=== PATIENT | male | born 1975 | race Caucasian/White ===

== ENCOUNTER 2021-02-07 09:03 | Emergency (ER) | payer SELFPAY ==
[2021-02-07 09:14] VITALS: BP 180/99; PULSE 94; RESP 18; TEMP 36.5; O2SAT 100
--- NOTE | 2021-02-07 09:16 | ED.BACK ---
HPI - Back Pain/Injury General Chief Complaint: Back Pain/Injury Stated Complaint: back pain with radiation down leg Time Seen by Provider: 02/07/21 09:16 Source: patient Mode of arrival: ambulatory Limitations: no limitations History of Present Illness HPI Narrative: Patient is a 45-year-old male who presents to the emergency department for evaluation of right-sided lower back pain. 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 Patient had immediate, sharp pain in his right lower back with radiation down his right leg. No fall. Patient does have a history of lower back pain. He does denies any numbness or tingling in his right lower extremity. No difficulty with bowel or bladder function. He is able to ambulate. He denies any upper back pain or chest pain. Related Data Allergies Allergy/AdvReac Type Severity Reaction Status Date / Time No Known Allergies Allergy Unverified 02/07/21 09:25 Review of Systems Review of Systems: Narrative: CONSTITUTIONAL: Denies fever CARDIOVASCULAR: Denies chest pain RESPIRATORY: Denies cough or dyspnea. GASTROINTESTINAL: Denies abdominal pain SKIN: Denies rash MUSCULOSKELETAL: Reports right lower back pain NEUROLOGIC: Denies headache PMFSH Past Medical History Medical History (Updated 02/07/21 @ 09:47 by Patricia Juárez MD) Chronic lumbar pain Social History Social History (Updated 02/07/21 @ 09:28 by Patricia Juárez MD) Smoking status: Current every day smoker Alcohol intake: current Substance use: never Gender identity (if verbalized by the patient): Male Exam Narrative: Exam Narrative: GENERAL: Awake, alert, conversant HEAD: Normocephalic, atraumatic. EYES: PERRLA and EOMI. ENT: Nares clear, no rhinorrhea or epistaxis. Mucous membranes moist. NECK: Supple. CHEST: No respiratory distress, breathing even and non labored HEART: Regular rate, sinus rhythm ABDOMEN:Non distended, non tender EXTREMITIES: Normal range of motion. No edema. Strength bilateral lower extremities 5/5. Intact EHL/FHL. Mild right lateral thigh tenderness to palpation. Right SI joint tenderness. Right lumbar paraspinal tenderness at L4-L5. No midline thoracic or lumbar tenderness. Extremities are warm and well-perfused. Intact distal sensation. SKIN: Warm, dry, no rash. NEURO:No focal deficits. Alert and oriented x3 Course Vital Signs Vital signs: Vital Signs Temperature 36.5 C 02/07/21 09:14 Pulse Rate 94 02/07/21 09:14 Respiratory Rate 18 02/07/21 09:14 Blood Pressure 180/99 H 02/07/21 09:14 Pulse Oximetry 100 02/07/21 09:14 Temperature 36.5 C 02/07/21 09:14 Pulse Rate 94 02/07/21 09:14 Respiratory Rate 18 02/07/21 09:14 Blood Pressure 180/99 H 02/07/21 09:14 Pulse Oximetry 100 02/07/21 09:14 MDM - Back Pain/Injury MDM Narrative Medical decision making narrative: Given History and Exam the patient appears to be at low risk for Spinal Cord Compression Syndrome, Vertebral Malignancy/Mets, acute Spinal Fracture, Vertebral Osteomyelitis, Epidural Abscess, Infected or Obstructing Kidney Stone. Patient is somewhat hypertensive, likely due to pain. No history of hypertension per patient although he does state he has not been to a doctor in many years. Their presentation appears most likely to be secondary to non-emergent musculoskeletal etiology vs non-emergent disc herniation. Pain is reproducible, and patient has no other high risk factors such as history of malignancy, weight loss, infectious symptoms. ED Workup: Labwork for outpatient follow up at this time. Disposition: Discharge. Strict return precautions discussed with patient with full understanding. Pt advised also needs to see PCP regarding BP as he may have borderline hypertension. He was advised to stop smoking. Advised to take scheduled Tylenol, ibuprofen, advised massage therapy as well as heat to help with pain. Will discharge home with a
[2021-02-07] MEDS: ACETAMINOPHEN 500 MG TABLET 1000 MG PO (10:04)
[2021-02-07] MEDS: diazePAM (*CRX) 5 MG TABLET PO (10:05)
[2021-02-07] MEDS: KETOROLAC (*BKC) 60 MG/2 ML VIAL 30 MG IM (10:05)
[2021-02-07] MEDS: predniSONE 20 MG TABLET 60 MG PO (10:05)
== END 2021-02-07 22:31 | disposition home or self-care (01) ==
PROVIDERS: Emergency Provider Emergency Medicine
DX: M54.31 Sciatica, right side (principal); F17.210 Nicotine dependence, cigarettes, uncomplicated
CPT/HCPCS: 96372; 99283; A9270; J1885; J7512

== ENCOUNTER 2022-03-16 11:05 | Emergency (ER) | payer BC, SELFPAY ==
--- NOTE | ~2022-03-16 | XR_ITS ---
XR knee LT min 4V 03/16/2022 11:31 Indication: Left knee pain Procedure: 4 views left knee Comparison: No prior studies for comparison. Findings: No suspicious masses, calcifications or architectural distortion in the left breast to sugg est malignancy. Small joint effusion. No foreign bodies. Impression: 1: Small knee effusion. Reviewed, dictated and finalized at location A. Impression: 1: Small knee effusion.
[2022-03-16 11:05] VITALS: BP 188/96; PULSE 83; RESP 18; TEMP 36.3; O2SAT 100
--- NOTE | 2022-03-16 11:49 | ED.LOWEXIN ---
HPI - Extremity Injury (Lower) General Chief Complaint: Extremity Injury, Lower Stated Complaint: knee pain Time Seen by Provider: 03/16/22 11:14 History of Present Illness HPI Narrative: 46-year-old male presents emergency room with cute onset of left knee pain. 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 Patient states that the knee feels unstable when he is turning it or attempting to straighten it. Patient reports the pain feels sharp and stabbing at times. Denies taking any medications to alleviate symptoms. Denies any history of injuries to the left knee Related Data Allergies Allergy/AdvReac Type Severity Reaction Status Date / Time No Known Allergies Allergy Unverified 02/07/21 09:25 Review of Systems Review of Systems: CONSTITUTIONAL: Denies fever, chills, or sweats. EYES: Denies visual changes, redness, or discharge. ENT: Denies rhinorrhea, congestion, sore throat, or otalgia. CARDIOVASCULAR: Denies chest pain, palpitations, or edema. RESPIRATORY: Denies cough or dyspnea. GASTROINTESTINAL: Denies abdominal pain, nausea, vomiting, or diarrhea. GENITOURINARY: Denies dysuria or hematuria. SKIN: Denies rash or itching. MUSCULOSKELETAL: Reports left knee pain NEUROLOGIC: Denies headache, numbness, dizziness, or weakness. PSYCHIATRIC: Denies anxiety or depression. PMFSH Past Medical History Medical History Chronic lumbar pain Social History Social History Smoking status: Current every day smoker Alcohol intake: current Substance use: never Gender identity (if verbalized by the patient): Male Exam Narrative: GENERAL: Well-appearing, well-nourished, and in no acute distress. HEAD: Normocephalic, atraumatic. EYES: PERRLA and EOMI. CHEST: Clear to auscultation. No respiratory distress. No wheezes rales or rhonchi HEART: Regular rate and rhythm. No murmur heard. Normal peripheral pulses. ABDOMEN: Soft, nontender, nondistended, normal active bowel sounds. EXTREMITIES: Left knee: No bony abnormality, no soft tissue swelling, posterior and anterior drawer tests are negative, pain with varus stress, no joint laxity noted, Vince's sign is negative, neurovascular is intact distally SKIN: Warm, dry, no rash. NEURO: No focal deficits. Alert and oriented x3. PSYCH: Normal mood and affect. Course Vital Signs Vital signs: Vital Signs Temperature 36.3 C L 03/16/22 11:05 Pulse Rate 83 03/16/22 11:05 Respiratory Rate 18 03/16/22 11:05 Blood Pressure 188/96 H 03/16/22 11:05 Pulse Oximetry 100 03/16/22 11:05 Temperature 36.3 C L 03/16/22 11:05 Pulse Rate 83 03/16/22 11:05 Respiratory Rate 18 03/16/22 11:05 Blood Pressure 188/96 H 03/16/22 11:05 Pulse Oximetry 100 03/16/22 11:05 Discharge Plan Discharge Clinical Impression: Acute internal derangement of left knee Patient Disposition: Home, Self-Care Condition: Stable Instructions: Antibiotic Form Prescriptions: New celecoxib [Celebrex] 200 mg capsule 200 mg PO BID Qty: 20 RF: 0 methocarbamol 750 mg tablet 750 mg PO TID Qty: 20 RF: 0 No Action acetaminophen 500 mg capsule 500 mg PO Q6H PRN (Reason: fever or pain) Qty: 30 RF: 0 diazepam 5 mg tablet 5 mg PO HS PRN (Reason: pain, moderate) Qty: 10 RF: 0 lidocaine 4 % adhesive patch,medicated 1 patch TOPICAL Q24H PRN (Reason: pain) 10 Days Qty: 10 RF: 0 prednisone 20 mg tablet 40 mg PO DAILY 5 Days Qty: 10 RF: 0 ibuprofen 400 mg tablet 400 mg PO TID PRN (Reason: fever or pain) 10 Days Qty: 30 RF: 0 Follow-up/Referrals: PHYSICIAN,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
[2022-03-16] MEDS: KETOROLAC (*BKC) 60 MG/2 ML VIAL IM (12:18)
== END 2022-03-16 12:21 | disposition home or self-care (01) ==
PROVIDERS: Emergency Provider Nurse Practitioner Family
DX: M23.92 Unspecified internal derangement of left knee (principal); F17.200 Nicotine dependence, unspecified, uncomplicated
CPT/HCPCS: 73564; 96372; 99283; J1885

== ENCOUNTER 2025-01-31 10:50 | Emergency (ER) | payer BC, SELFPAY ==
[2025-01-31] VITALS (7 sets, daily range): BP systolic 176–206; BP diastolic 84–105; PULSE 87–108; RESP 16–28; TEMP 36.8; O2SAT 98–100
--- NOTE | ~2025-01-31 | XR_ITS ---
CHEST RADIOGRAPH, PA AND LATERAL CLINICAL HISTORY: chest pain . COMPARISON: None available TECHNIQUE: PA and lateral views of the chest. FINDINGS The cardiomediastinal silhouette is unremarkable. The lungs are clear. Visualized osseous structures and soft tissues are unremarkable. IMPRESSION: No focal infiltrate or effusion. Reviewed, dictated and finalized at location A.
--- NOTE | 2025-01-31 10:53 | ECG_ITS ---
Test Date: 2025-01-31 10:59:50 Measurements Intervals [place] Rate: 98 P: 51 WA: 179 QRS: 23 QRSD: 98 T: 41 QT: 334 QTc: 426 Interpretive Statements SINUS RHYTHM NORMAL ECG No previous ECG available for comparison Electronically Signed On 01-31-2025 14:20:34 CDT by Santosh Bean M.D.
[2025-01-31 11:13] LABS: Basophils Absolute Auto 0.1 K/mm3 (0.0-0.1); Basophils Percent Auto 0.5 % (0.2-1.2); Eosinophils Absolute Auto 0.1 K/mm3 (0-0.3); Eosinophils Percent Auto 0.8 % (0-4.4); Hematocrit 46.3 % (42.0-52.0); Hemoglobin 15.6 g/dL (14.0-18.0); Immature Granulocyte Absolute 0.08 K/mm3 (0.00-0.031); Immature Granulocyte Percent A 0.5 % (0-0.5); Lymphocytes Absolute Auto 1.45 K/mm3 (0.9-3.2); Lymphocytes Percent Auto 8.7 % (18.3-44.2); Mean Corpuscular HGB Conc 33.7 g/dl (32-36); Mean Corpuscular Hemoglobin 32.7 pg (26-34); Mean Corpuscular Volume 97.1 fl (80-100); Mean Platelet Volume 9.8 fl (7.4-10.4); Monocytes Absolute Auto 1.4 K/mm3 (0.1-0.6); Monocytes Percent Auto 8.6 % (2.6-8.5); Neutrophils Absolute Auto 13.5 K/mm3 (1.3-6.7); Neutrophils Percent Auto 80.9 % (45.5-73.1); Platelet Count Result 255 k/mm3 (150-375); Red Blood Count 4.77 M/mm3 (4.6-6.20); Red Cell Distribution Width 12.2 % (11.5-14.5); White Blood Count 16.7 K/mm3 (4.5-10.0)
[2025-01-31 11:24] LABS: Alanine Aminotransferase 18 U/L (6-50); Albumin Level 4.4 g/dL (3.5-5.1); Alkaline Phosphatase 94 U/L (38-126); Anion Gap 10 mmol/L (4-12); Aspartate Amino Transferase 18 U/L (17-59); Bilirubin,Total 0.8 mg/dL (0.2-1.3); Blood Urea Nitrogen 7 mg/dL (9-20); Calcium 9.5 mg/dL (8.4-10.2); Carbon Dioxide 28 mmol/L (22-30); Chloride 102 mmol/L (98-107); Estimated CRCL calculation 122 ml/min; Estimated Glomerular Filt Rate > 60; Glucose 130 mg/dL (65-110); Lipase 18 U/L (23-300); Potassium 4.4 mmol/L (3.4-5.0); Sodium 140 mmol/L (137-145)
[2025-01-31 11:25] LABS: INR 0.9; Prothrombin Time 12.7 Seconds (11.1-14.7)
[2025-01-31 11:36] LABS: Troponin I < 0.012 ng/mL (0.000-0.034)
[2025-01-31 13:16] LABS: D Dimer 0.66 ug/mL (<0.48)
--- NOTE | 2025-01-31 13:45 | ED.CHESTPAIN ---
HPI - Chest Pain General Chief Complaint: Chest Pain Stated Complaint: center chest hurts Time Seen by Provider: 01/31/25 12:45 History of Present Illness HPI narrative: 49-year-old male with no pertinent past medical history presenting to the emergency department for evaluation of midsternal chest pain. 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 Worsens with palpation and twisting motions. Worsens with leaning forward and deep breathing. No shortness of breath or pain without movement. No nausea, vomiting, abdominal pain, fever, chills. No history of any cardiac disease. He does not see doctors regularly. He is hypertensive in triage. No other vital anomalies. Did not take anything besides Tylenol and ibuprofen which did alleviate the symptoms transiently at home. No trauma or injuries otherwise. Related Data Allergies Allergy/AdvReac Type Severity Reaction Status Date / Time No Known Allergies Allergy Verified 01/31/25 10:51 Review of Systems Review of Systems: As reviewed above in HPI [facility] Past Medical History Medical History Chronic lumbar pain Social History Social History Smoking status: Current every day smoker Alcohol intake: current Substance use: never Gender identity (if verbalized by the patient): Male Exam Narrative: GENERAL: [Well-appearing, well-nourished, and in no acute distress.] HEAD: [Normocephalic, atraumatic.] EYES: [PERRLA and EOMI.] ENT: Nares clear, no rhinorrhea or epistaxis. Mucous membranes moist. NECK: Supple. CHEST: [Clear to auscultation. No respiratory distress.] Reproducible tenderness to palpation along the sternum and costochondral junctions, no overlying skin changes. No pericardial rub or murmur HEART: [Regular rate and rhythm]. No murmur heard. [Normal peripheral pulses.] ABDOMEN: [Soft, nondistended], [nontender], [No rigidity or guarding] EXTREMITIES: Normal range of motion. [No edema.] SKIN: Warm, dry, no rash. NEURO: [No focal deficits]. Alert and oriented [x3.] PSYCH: [Normal mood and affect.] Course Vital Signs Vital signs: Vital Signs Temperature 36.8 C 01/31/25 10:54 Pulse Rate 87 01/31/25 10:54 Respiratory Rate 16 01/31/25 10:54 Blood Pressure 206/84 H 01/31/25 10:54 Pulse Oximetry 98 01/31/25 10:54 Temperature 36.8 C 01/31/25 10:54 Pulse Rate 87 01/31/25 10:54 Respiratory Rate 16 01/31/25 10:54 Blood Pressure 206/84 H 01/31/25 10:54 Pulse Oximetry 99 01/31/25 12:18 Oxygen Delivery Room Air 01/31/25 12:18 MDM - Chest Pain MDM Narrative Medical decision making narrative: 49-year-old male with no reported past medical history but does not seek medical doctors. Presents to the emergency depart with chest pain. Was moving heavy karyn all day yesterday and woke up today with midsternal chest pain worse with palpation and twisting, breathing. No shortness of breath or pain without palpation or movement. No cardiac disease to his knowledge but is hypertensive in triage. Does not take any blood pressure medications. Was otherwise in his normal state of health. No other trauma or injuries. He has an unremarkable physical examination with 2+ symmetric pulses in both arms and legs. Repeat vital signs while he was sitting down in the examination room shows a blood pressure of 174/72. No tachycardia, fever or hypoxia. He has reproducible midsternal Mony and costochondral tenderness without any overlying skin changes. Suspicion presently is for musculoskeletal chest pain, costochondritis, precordial catch syndrome, less likely pneumonia, pneumothorax him ACS or thromboembolic disease such as aortic process/aneurysm. given his risk factors including elevated blood pressure without any reported history of hypertension a broad workup was ordered including a CBC, CMP, EKG, chest x-ray, D-dimer and troponin. He was given Toradol for analgesia with good effect. Workup shows a leukocytosis but no anemia or platelet dysfunction. Normal coagulation panel. D-dimer is mildly elevated 0.66 but he meet YEARS criteria to safely exclude thromboembolic PE. electrolyte panel is normal, normal BUN and creatinine, normal renal function, unremarkable glucose. Negative troponin. EKG shows no signs of dysrhythmia or ST segment elevations, depressions or acute inversions. Normal sinus rhythm. chest x-ray shows no mediastinal widening, no acute cardiothoracic process. Patient was re-evaluated with improvement and likely has musculoskeletal chest pain but he does have elevated blood pressure at baseline does not see his PCP. He was started on amlodipine here for control of this and will be discharged home with 30 day supply until he can get into his primary doctor's office for titration and other management as needed. Patient was comfortable with this plan also given strict return precautions and safely discharged home at this time. Medical Records Data Attestation: I reviewed the patient's medical records. Lab Data Attestation: I reviewed the patient's lab results. 01/31/25 11:06 01/31/25 11:06 Labs: Lab Results 01/31/25 Range/Units 11:06 WBC 16.7 H (4.5-10.0) K/mm3 RBC 4.77 (4.6-6.20) M/mm3 Hgb 15.6 (14.0-18.0) g/dL Hct 46.3 (42.0-52.0) % MCV 97.1 (80-100) fl MCH 32.7 (26-34) pg MCHC 33.7 (32-36) g/dl RDW 12.2 (11.5-14.5) % Plt Count 255 (150-375) k/mm3 MPV 9.8 (7.4-10.4) fl Immature Gran % (Auto) 0.5 (0-0.5) % Neut % (Auto) 80.9 H (45.5-73.1) % Lymph % (Auto) 8.7 L (18.3-44.2) % [place] % (Auto) 8.6 H (2.6-8.5) % Eos % (Auto) 0.8 (0-4.4) % Baso % (Auto) 0.5 (0.2-1.2) % Lymph # (Auto) 1.45 (0.9-3.2) K/mm3 [place] # (Auto) 1.4 H (0.1-0.6) K/mm3 Eos # (Auto) 0.1 (0-0.3) K/mm3 Baso # (Auto) 0.1 (0.0-0.1) K/mm3 Abs Immat Gran (auto) 0.08 H (0.00-0.031) K/mm3 Absolute Neuts (auto) 13.5 H (1.3-6.7) K/mm3 Absolute Nucleated RBC 0.000 (0.0-0.012) K/mm3 Nucleated RBC % 0.0 (0.0-0.2) % PT 12.7 (11.1-14.7) Seconds INR 0.9 APTT 28.0 (22.3-36.8) Seconds D-Dimer 0.66 H (<0.48) ug/mL Sodium 140 (137-145) mmol/L Potassium 4.4 (3.4-5.0) mmol/L Chloride 102 (98-107) mmol/L Carbon Dioxide 28 (22-30) mmol/L Anion Gap 10 (4-12) mmol/L BUN 7 L (9-20) mg/dL Creatinine 0.70 (0.7-1.3) mg/dL Estim Creat Clear Calc 122 ml/min Estimated GFR > 60 (59 - ) Glucose 130 H (65-110) mg/dL Calcium 9.5 (8.4-10.2) mg/dL Total Bilirubin 0.8 (0.2-1.3) mg/dL AST 18 (17-59) U/L ALT 18 (6-50) U/L Alkaline Phosphatase 94 (38-126) U/L Troponin I < 0.012 (0.000-0.034) ng/mL Total Protein 9.0 H (6.3-8.2) g/dL Albumin 4.4 (3.5-5.1) g/dL Lipase 18 L (23-300) U/L Imaging Data Attestation: I personally reviewed and interpreted this imaging study as follows: My impression: Impressions Chest X-Ray 01/31/25 11:37 IMPRESSION: No focal infiltrate or effusion. ECG Data EKG #1: Attestation: I personally reviewed and interpreted this ECG as follows: ECG completion date: 01/31/25 ECG completion time: 10:59 Prior ECG tracings: not available for review Interpretation: No ST segment elevations, depressions or inversions. No previous EKG for comparison. Regular rate, regular rhythm and axis. QTC 4-6, QRS 98, MD interval 179. Overall interpretation normal sinus rhythm. Discharge Plan Discharge Clinical Impression: Asymptomatic hypertension, Chest pain, Chest pain, musculoskeletal Patient Disposition: Home, Self-Care Condition: Stable Instructions: Antibiotic Form, Costochondritis (ED), Hypertension (ED), Chest Wall Pain (ED) Additional Instructions: your cardiac workup here was unremarkable. No signs of any acute damage, normal electrolytes, normal EKG, normal x-ray. You do have elevated blood pressure here and likely have chronic hypertension that needs to be addressed. We will send you home with amlodipine which is a once daily medication to control your blood pressure. Will also send you home with Toradol which is a high-dose anti-inflammatory to control your pain which is likely a musculoskeletal injury or an acute inflammatory process in the ribcage. Follow-up with a primary care provider. Return with any new or worsening concerns. Patient Language: Gambian Prescriptions: New ketorolac 10 mg tablet 10 mg PO Q8H PRN (Reason: pain) 5 Days Qty: 20 0RF Rx Instructions: maximum total duration of 5 days from all oral, intranasal, or parenteral formulations lidocaine 5 % adhesive patch,medicated 1 patch topical DAILY Qty: 15 0RF Rx Instructions: leave on most painful area for up to 12 hrs amlodipine [Norvasc] 5 mg tablet 5 mg PO DAILY Qty: 30 0RF No Action acetaminophen 500 mg capsule 500 mg PO Q6H PRN (Reason: fever or pain) Qty: 30 0RF diazepam 5 mg tablet 5 mg PO HS PRN (Reason: pain, moderate) Qty: 10 0RF lidocaine 4 % adhesive patch,medicated 1 patch TOPICAL Q24H PRN (Reason: pain) 10 Days Qty: 10 0RF Rx Instructions: may leave on for up to 12 hrs prednisone 20 mg tablet 40 mg PO DAILY 5 Days Qty: 10 0RF ibuprofen 400 mg tablet 400 mg PO TID PRN (Reason: fever or pain) 10 Days Qty: 30 0RF celecoxib [Celebrex] 200 mg capsule 200 mg PO BID Qty: 20 0RF methocarbamol 750 mg tablet 750 mg PO TID Qty: 20 0RF Follow-up/Referrals: Grayson,Davon Goldstein [Other] - 1 Week Time of Disposition: 13:53
[2025-01-31] MEDS: amLODIPine BESYLATE 5 MG TABLET PO (14:01)
[2025-01-31] MEDS: KETOROLAC 30 MG/ML VIAL (*BKC) IM (14:02)
== END 2025-01-31 14:08 | disposition home or self-care (01) ==
PROVIDERS: Student in an Organized Health Care Education/Training Program; Emergency Provider Student in an Organized Health Care Education/Training Program
DX: R07.89 Other chest pain (principal); F17.210 Nicotine dependence, cigarettes, uncomplicated; I10 Essential (primary) hypertension
CPT/HCPCS: 36415; 71046; 80053; 83690; 84484; 85025; 85380; 85610; 85730; 93005; 96372; 99284; A9270; J1885